=== PATIENT | female | born 1965 ===

== ENCOUNTER 2023-02-08 09:09 | Day surgery (SDC) | payer OTHER ==
[~2023-02-08] VITALS: Ht 165.1 cm; Wt 59.0 kg
[2023-02-08] MEDS ORDERED: fentaNYL citrate 0.05 MG/ML VIAL ONE (10:29)
[2023-02-08] MEDS ORDERED: LIDOCAINE 2% 100 MG/5 ML UJET TP ONE (10:29)
[2023-02-08] MEDS ORDERED: fentaNYL citrate 0.05 MG/ML VIAL IVP ONE (11:55)
== END 2023-02-08 12:26 | disposition home or self-care (01) ==
LOC: MDS 09:09 → MMU 09:10 → MDS 12:26
PROVIDERS: ATTEND Internal Medicine Gastroenterology
DX: Z12.11 Encounter for screening for malignant neoplasm of colon (principal); K63.5 Polyp of colon; K64.9 Unspecified hemorrhoids; E78.5 Hyperlipidemia, unspecified; F32.A Depression, unspecified; F17.210 Nicotine dependence, cigarettes, uncomplicated; Z85.3 Personal history of malignant neoplasm of breast; Z98.82 Breast implant status; Z79.899 Other long term (current) drug therapy
CPT/HCPCS: 45385; J3010